=== PATIENT | female | born 1990 | race Caucasian/White ===

== ENCOUNTER → 2020-12-12 | Outpatient (CLI) | payer BC, OTHER ==
[2020-12-17 15:08] LABS: HPV 16 Negative (Negative); HPV 18 Negative (Negative); HPV OTHER HR TYPES Negative (Negative)
== END ==
LOC: LAB 17:43 → LAB SHORT 17:43
PROVIDERS: Student in an Organized Health Care Education/Training Program
DX: Z12.4 Encounter for screening for malignant neoplasm of cervix (principal)
CPT/HCPCS: 87624; G0145

== ENCOUNTER → 2020-12-23 | Outpatient (CLI) | payer BC, OTHER | END | disposition home or self-care (01) | LOC: LAB SHORT 07:56 → LAB 07:56 | DX: A63.0 Anogenital (venereal) warts (principal) | CPT/HCPCS: 88305 ==

== ENCOUNTER → 2023-09-03 | Outpatient (CLI) | payer OTHER ==
[2023-09-04 11:02] LABS: Stool Occult Bld Immuno 1 Negative (NEGATIVE)
== END | disposition home or self-care (01) ==
LOC: LAB 10:16 → LAB SHORT 10:16
PROVIDERS: Student in an Organized Health Care Education/Training Program
DX: G47.00 Insomnia, unspecified (principal); R19.5 Other fecal abnormalities; R15.2 Fecal urgency; R21 Rash and other nonspecific skin eruption
CPT/HCPCS: 82274

== ENCOUNTER 2024-07-20 06:00 | Day surgery (SDC) | payer BC ==
[~2024-07-20] VITALS: Ht 165 cm; Wt 70.9 kg
[2024-07-20] VITALS (12 sets, daily range): BP systolic 97–130; BP diastolic 60–88
[~2024-07-20 06:00] MED LIST: ACET325 PO; IBUP200 PO; Norco 5-325 Ta1 EACH PO; ONDA4 PO
[2024-07-20] MEDS ORDERED: MELATONIN5 M1 PO (06:34)
[2024-07-20] MEDS ORDERED: propofoL 20 ML IV ONE (06:54)
[2024-07-20] MEDS ORDERED: Rocuronium Bromide 10 MG/ML 5ML Injection IV ONE ×4 (06:54→09:19)
[2024-07-20] MEDS ORDERED: Midazolam HCl 1MG / ML 2ML Vial ONE (06:54)
[2024-07-20] MEDS ORDERED: FentaNYL Citrate 50 MCG/ML 2 ML Injection ONE ×2 (06:54→08:06)
[2024-07-20] MEDS ORDERED: Lidocaine HCl 2% 20 ML MDV ONE (06:54)
[2024-07-20] MEDS ORDERED: Bupivacaine 0.25% Epi 1:200000 30 ML Vial ONE ×2 (06:59→07:18)
--- NOTE | 2024-07-20 07:15 | NUR ---
Ambulatory in Day Surgery History, Chart, Medications and Allergies reviewed before start of procedure.Patient confirms NPO status and agrees with scheduled surgery. Patient reports completing Chlorhexadine shower X2 prior to admission to hospital.Patient States Post-Procedure ride home has been arranged. Lungs clear T/O to Auscultation.
[2024-07-20] MEDS ORDERED: Lactated Ringer's 1,000 ML IV SCH (07:20)
[2024-07-20] MEDS ORDERED: CeFAZolin Sodium 2,000 MG in NS 100 ML IV SCH (07:20)
[2024-07-20] MEDS ORDERED: Phenylephrine HCl 100 MCG/ML-NS 10MLSYR (1MG/10ML) ONE (07:52)
[2024-07-20] MEDS ORDERED: Dexamethasone Sod Phos 10 MG/ML 1ML VIAL ONE (08:06)
[2024-07-20] MEDS ORDERED: Ondansetron HCl 2 MG / ML 2ML Vial ONE (08:06)
[2024-07-20] MEDS ORDERED: Dexmedetomidine HCL 200 MCG / 2 ML ONE (08:35)
[2024-07-20] MEDS ORDERED: Ketorolac Tromethamine 30mg Vial ONE (08:36)
[2024-07-20] MEDS ORDERED: Scopolamine Hydrobromide Patch TOP SCH (09:00)
[2024-07-20] MEDS ORDERED: Ondansetron HCl 2 MG / ML 2ML Vial IV PRN (09:00)
[2024-07-20] MEDS ORDERED: HYDROmorphone HCl/Pf 1MG SYR IV PRN ×2 (09:00)
[2024-07-20] MEDS ORDERED: FentaNYL Citrate 50 MCG/ML 2 ML Injection IV PRN (09:00)
[2024-07-20] MEDS ORDERED: Sugammadex Sodium 200 MG/2ML SDV (100 MG/ML) ONE (09:19)
[2024-07-20] MEDS ORDERED: HYDROmorphone HCl/Pf 1MG SYR ONE ×2 (10:04→10:51)
[2024-07-20] MEDS ORDERED: OxyCODONE 5 mg/Acetamin 325 mg TABLET PO PRN (10:25)
--- NOTE | 2024-07-20 11:31 | NUR ---
Dressing to procedure site clean, dry, intact with no visible drainage, swelling, erythema or bruising noted. Scant vaginal bleeding noted. Discharge instructions reviewed with patient. Patient verbalizes understanding. Copy given to patient to take home. Discharged via wheelchair to private car for ride home.
== END 2024-07-20 11:33 | disposition home or self-care (01) ==
LOC: ORSCMMR 06:00 → ORD 07:30 → ORSCMMR 11:33
PROVIDERS: Obstetrics & Gynecology
PROC: 0UB04ZZ Excision of Right Ovary, Percutaneous Endoscopic Approach (ICD-10-PCS; principal; 2024-07-20 07:30)
PROC: 8E0W4CZ Robotic Assisted Procedure of Trunk Region, Percutaneous Endoscopic Approach (ICD-10-PCS; principal; 2024-07-20 07:30)
PROC: 0U5F4ZZ Destruction of Cul-de-sac, Percutaneous Endoscopic Approach (ICD-10-PCS; principal; 2024-07-20 07:30)
DX: N83.291 Other ovarian cyst, right side (principal); N80.329 Endometriosis of the posterior cul-de-sac, unspecified depth; R10.2 Pelvic and perineal pain; F17.210 Nicotine dependence, cigarettes, uncomplicated
CPT/HCPCS: 88305; A9270; J0690; J1100; J1171; J1885; J2250; J2371; J2405; J2704; J3010; J7120

== ENCOUNTER → 2024-09-19 | Outpatient (CLI) | payer BC ==
[~2024-09-19] MED LIST changes: +MELATONIN5 M1 PO
== END ==
LOC: LAB SHORT 09:08 → LAB 09:08
DX: R30.0 Dysuria (principal)
CPT/HCPCS: 87077; 87086; 87186